=== PATIENT | female | born 1960 | race Caucasian/White ===

== ENCOUNTER → 2025-02-03 12:14 | Outpatient (REF) | payer OTHER, SELFPAY | LOC: RAD 12:14 | PROVIDERS: ATTENDING PHYSICIAN Family Medicine | DX: M54.50 Low back pain, unspecified (principal) | CPT/HCPCS: 72202 ==

== ENCOUNTER → 2025-02-09 11:38 | Outpatient (REF) | payer OTHER, SELFPAY | LOC: RAD 11:38 | PROVIDERS: ATTENDING PHYSICIAN Family Medicine | DX: M16.0 Bilateral primary osteoarthritis of hip (principal) | CPT/HCPCS: 73502 ==